=== PATIENT | female | born 1980 | race Two or more races ===

== ENCOUNTER 2018-04-03 17:22 | Emergency (ER) | payer SELFPAY ==
[~2018-04-03] VITALS: Ht 157.5 cm; Wt 63.5 kg
[2018-04-03 18:14] VITALS: BP 118/61
[2018-04-03] MEDS ORDERED: IBUPROFEN 600 MG TABLET. PO ONE (18:45)
--- NOTE | 2018-04-03 18:49 | PHYS DOC ---
Past Medical History Past Medical History: No Pertinent History Adult General Chief Complaint Chief Complaint: LOWER EXT PAIN HPI HPI Patient is a 38 year old female who presents with was at the park was washing her hands that she turned to grab the paper towel and twisted her knee and fell to the ground. Patient states that she does do feel like the knee came out of place him back into place. Patient states that it hurts on the front of her knee and the back of her knee. This happened at around 1700 this afternoon. Patient rates as 7 out of 10 on her pain and states that she is not taken any pain medications. Patient states she has no known drug allergies and takes no medications daily. Patient states she occasionally takes allergy medications. Patient started her period yesterday. Review of Systems Review of Systems Constitutional: Denies fever or chills [] Eyes: Denies change in visual acuity, redness, or eye pain [] HENT: Denies nasal congestion or sore throat [] Respiratory: Denies cough or shortness of breath [] Cardiovascular: No additional information not addressed in HPI [] GI: Denies abdominal pain, nausea, vomiting, bloody stools or diarrhea [] : Denies dysuria or hematuria [] Musculoskeletal: Denies back pain. Left knee joint pain [] Integument: Denies rash or skin lesions [] Neurologic: Denies headache, focal weakness or sensory changes [] Endocrine: Denies polyuria or polydipsia [] All other systems were reviewed and found to be within normal limits, except as documented in this note. Current Medications Current Medications Current Medications Medications (Trade) Dose Ordered Sig/Jacqueline Start Time Stop Time Status Last Admin Dose Admin Ibuprofen (Motrin) 600 mg 1X ONCE 04/03/18 18:45 04/03/18 18:46 DC 04/03/18 18:45 600 MG Allergies Allergies Allergies Coded Allergies Type Severity Reaction Last Updated Verified cetirizine Allergy Intermediate Itching 04/03/18 Yes Physical Exam Physical Exam Constitutional: Well developed, well nourished, no acute distress, non-toxic appearance. [] HENT: Normocephalic, atraumatic, bilateral external ears normal, oropharynx moist, no oral exudates, nose normal. [] Eyes: PERRLA, EOMI, conjunctiva normal, no discharge. [] Neck: Normal range of motion, no tenderness, supple, no stridor. [] Cardiovascular:Heart rate regular rhythm, no murmur [] Lungs & Thorax: Bilateral breath sounds clear to auscultation [] Abdomen: Bowel sounds normal, soft, no tenderness, no masses, no pulsatile masses. [] Skin: Warm, dry, no erythema, no rash. [] Back: No tenderness, no CVA tenderness. [] Extremities: Left knee posterior and anterior tenderness, no cyanosis, no clubbing, ROM intact but painful, no edema. [] Neurologic: Alert and oriented X 3, normal motor function, normal sensory function, no focal deficits noted. [] Psychologic: Affect normal, judgement normal, mood normal. [] Current Patient Data Vital Signs Vital Signs Date Time Temp Pulse Resp B/P (MAP) Pulse Ox O2 Delivery O2 Flow Rate FiO2 04/03/18 18:14 97.9 67 16 118/61 (80) 100 Room Air 97.9 EKG EKG [] Radiology/Procedures Radiology/Procedures Left knee Impressions: No acute or obvious findings. Read by Dr Canales. Course & Med Decision Making Course & Med Decision Making Patient is a 38 year old female who presents with was at the park was washing her hands that she turned to grab the paper towel and twisted her knee and fell to the ground. Patient states that she does do feel like the knee came out of place him back into place. Patient states that it hurts on the front of her knee and the back of her knee. This happened at around 1700 this afternoon. Patient rates as 7 out of 10 on her pain and states that she is not taken any pain medications. Patient states she has no known drug allergies and takes no medications daily. Patient states she occasionally takes allergy medications. Patient started her period yesterday. Left knee is not bruised, deformed or swollen. It is tender to palpation to the back of her knee and the front. Patient is able to straighten that leg on her own and she can bend it back on her own. There does not seem to be any instability in the knee. There is no swelling to the knee or to that lower extremity or the foot. Pedal pulses present. Patient is alert and oriented and neurologically intact. Patient denies any numbness or tingling. Patient will receive an x-ray and ordered her ibuprofen for pain in the ED. Xray showed no acute findings. There is not pain with palpation to the tibula or fibula. Jo Ann is given a lindy wrap and is to follow up with her primary care and take Ibuprofen for pain. Patient is told that she should also try to stay off the effected leg until it begins feeling better. Patient is stable and in no distress. [] Dragon Disclaimer Dragon Disclaimer This electronic medical record was generated, in whole or in part, using a voice recognition dictation system. Departure Departure Impression: Primary Impression: Knee injury Disposition: HOME, SELF-CARE Condition: STABLE Referrals: NO PCP (PCP) Patient Instructions: Knee Pain Additional Instructions: Follow up with your primary care doctor for further evaluation. Scripts Ibuprofen (IBUPROFEN) 600 Mg Tablet 600 MG PO PRN Q6HRS PRN for INFLAMMATION for 7 Days, TAB Prov: HARDEEP LINDA APRN 04/03/18 Problem Qualifiers Primary Impression: Knee injury Encounter type: initial encounter Laterality: left Qualified Codes: S89.92XA - Unspecified injury of left lower leg, initial encounter HARDEEP LINDA APRN Apr 03, 2018 18:49
[2018-04-03] MEDS ORDERED: IBUP-1007 PO (20:10)
--- NOTE | 2018-04-03 20:22 | RAD ---
KNEE LEFT 3V History: TWISTING INJURY. POSTERIOR AND ANTERIOR PAIN. Comparison: None are available No acute fracture or bone destruction. Joints and soft tissues appear intact. Impression: No acute radiographic abnormality Electronically signed by: Malvin Mack MD (04/03/2018 8:19 PM) [facility]
== END 2018-04-03 20:23 | disposition home or self-care (01) ==
LOC: ER 17:22
DX: S89.92XA Unspecified injury of left lower leg, initial encounter (principal); Z88.8 Allergy status to other drugs, medicaments and biological substances; W18.39XA Other fall on same level, initial encounter; Y93.E8 Activity, other personal hygiene; Y92.830 Public park as the place of occurrence of the external cause; Y99.8 Other external cause status
CPT/HCPCS: 73562; 99284